=== PATIENT | female | born 1995 | race Caucasian/White ===

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

== ENCOUNTER → 2018-01-07 | Outpatient (CLI) | payer BC, OTHER ==
[~2018-01-07] MED LIST changes: +MAXALT10 MG PO; +NAPROSYN500 MG PO; +PERCOCET 325 MG1 TA2 PO; +REGLAN 10MG10 MG/TAB PO; +ULTRAM 50MG TAB50 MG PO; +ZOFRAN8 MG PO
== END ==
LOC: COL.CARD 08:00
DX: R55 Syncope and collapse (principal)